=== PATIENT | female | born 1930 | race Two or more races ===

== ENCOUNTER 2017-06-20 14:01 | Outpatient (CLI) | payer MEDICARE, MEDICAID ==
--- NOTE | 2017-06-20 15:04 | GI Initial Consult Note ---
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 She presents today with c/o of generalized abdominal pain. Denies any unintentional weight loss or changes in dietary habits. No N/V/D. Patient is a fall risk. Home Meds Reported Medications [place]-3 Fatty Acids (Fish Oil) 500 Mg Capsule.dr, 500 MG PO, CAP 06/20/17 Glucosamine Sulfate 2KCL (GLUCOSAMINE) 1,000 Mg Tablet, 1000 MG PO, TAB 06/20/17 Vitamin D (Vitamin D3) 400 Unit Tablet, 400 UNITS ORAL DAILY, TAB 06/20/17 Zolpidem Tartrate* (ZOLPIDEM TARTRATE*) 5 Mg Tablet, 5 MG ORAL BEDTIME PRN, TAB 0 Refills 06/20/17 Aspirin* (ASPIR 81*) 81 Mg Tablet.dr, 81 MG ORAL DAILY, TAB 06/20/17 Ranitidine Hcl* (ZANTAC*) 150 Mg Tablet, 150 MG ORAL DAILY, #30 TAB 0 Refills 06/20/17 Escitalopram Oxalate* (LEXAPRO*) 10 Mg Tablet, 10 MG ORAL DAILY, TAB 06/20/17 Levothyroxine Sodium* (LEVOTHYROXINE SODIUM*) 75 Mcg Tablet, 25 MCG ORAL DAILY, TAB Take in the morning on an empty stomach, at least 30 minutes before food. 06/20/17 Diphenhydramine Hcl (BANOPHEN) 25 Mg Tablet, 25 MG PO, TAB 06/20/17 Lubiprostone (AMITIZA*) 24 Mcg Capsule, 24 MCG ORAL EVERY 12 HOURS, CAP 06/20/17 Omeprazole (OMEPRAZOLE) 40 Mg Capsule.dr, 40 MG ORAL DAILY, CAP 06/20/17 Atorvastatin (Lipitor) 80 Mg Tablet, 80 MG ORAL DAILY, TAB 0 Refills 06/20/17 Allergies: Coded Allergies: No Known Allergies (Verified , 01/28/11) Patient History Limited by: language barrier History Provided By: Patient PMH Narrative Osteopetrosis Chronic GERD Chronic Constipation Pancreatic Cyst Hypothyroidism Past Surgical History: N/A Social History: Denies: smoking, alcohol use, drug use, other Review of Systems All Other Systems: negative except mentioned in HPI Physical Exam T 97.6 BP 114/57 P 62 Sp02 EP Interpretation: reviewed, normal General Appearance: well appearing, no apparent distress, alert Head: normocephalic EENT: PERRL/EOMI, normal ENT inspection Neck: supple Respiratory: normal breath sounds, no respiratory distress Cardiovascular: normal rate Gastrointestinal: normal inspection, non tender, soft, normal bowel sounds, non -distended Rectal: deferred Genitourinary: no CVA tenderness Musculoskeletal: normal inspection, back normal Neurologic: normal inspection, alert, oriented x3, responsive Psychiatric: normal inspection, judgement/insight normal, memory normal Skin: normal inspection, normal color, no rash, warm/dry, palpation normal, well hydrated Lymphatic: normal inspection, no adenopathy GI: Plan Problems: (1) GERD (gastroesophageal reflux disease) (2) Constipation (3) Pancreatic cyst (4) Abdominal pain Plan CT AP ordered recommend Align Rx Amitiza 24mcg dc aspirin cont ppi labs today >> CBC, CMP, CEA, CA19-9, Amylase/lipase RTC after imaging studies Seen with Dr. Rapp. Thank you for this patient referral. Loly Matthews N.P. Jun 20, 2017 15:04
[2017-06-20] MEDS ORDERED: LEVOTHYROXINE75 MCG ORAL (15:49)
[2017-06-20] MEDS ORDERED: FISH OIL500 M3 PO (15:49)
[2017-06-20] MEDS ORDERED: LEXAPRO10 MG ORAL (15:49)
[2017-06-20] MEDS ORDERED: ZANTAC150 MG ORAL (15:49)
[2017-06-20] MEDS ORDERED: GLUCOSAMINE1000 M1 PO (15:49)
[2017-06-20] MEDS ORDERED: ZOLPIDEM TARTRAT5 MG ORAL (15:49)
[2017-06-20] MEDS ORDERED: LIPITOR80 MG ORAL (15:49)
[2017-06-20] MEDS ORDERED: ASPIR 8181 MG ORAL (15:49)
[2017-06-20] MEDS ORDERED: AMITIZA24 MCG ORAL (15:49)
[2017-06-20] MEDS ORDERED: OMEPRAZOLE40 M1 ORAL (15:49)
[2017-06-20] MEDS ORDERED: VITAMIN D400 INTLU ORAL (15:49)
[2017-06-20] MEDS ORDERED: BANOPHEN25 M1 PO (15:49)
[2017-06-20 17:20] LABS: BASOPHILS % (AUTO) 0.9 % (0.0-2.0); EOSINOPHILS % (AUTO) 3.5 % (0.0-3.0); HEMATOCRIT 37.3 % (37.0-47.0); HEMOGLOBIN 12.6 G/DL (12.0-16.0); LYMPHOCYTES % (AUTO) 30.2 % (20.0-45.0); MEAN CORPUSCULAR VOLUME 90 FL (80-99); MONOCYTES % (AUTO) 8.2 % (1.0-10.0); NEUTROPHILS % (AUTO) 57.2 % (45.0-75.0); PLATELET COUNT 246 K/UL (150-450); RED BLOOD COUNT 4.15 M/UL (4.20-5.40); RED CELL DISTRIBUTION WIDTH 12.2 % (11.6-14.8); WHITE BLOOD COUNT 8.5 K/UL (4.8-10.8)
[2017-06-20 17:30] LABS: ALANINE AMINOTRANSFERASE 21 U/L (12-78); ALBUMIN 3.6 G/DL (3.4-5.0); ALBUMIN/GLOBULIN RATIO 0.9 (1.0-2.7); ALKALINE PHOSPHATASE 59 U/L (46-116); AMYLASE 35 U/L (25-115); ANION GAP 8 mmol/L (5-15); ASPARTATE AMINO TRANSFERASE 20 U/L (15-37); BILIRUBIN,TOTAL 0.4 MG/DL (0.2-1.0); BLOOD UREA NITROGEN 18 mg/dL (7-18); CALCIUM 8.9 MG/DL (8.5-10.1); CARBON DIOXIDE 27 MMOL/L (21-32); CHLORIDE 103 MMOL/L (98-107); CREATININE 1.2 MG/DL (0.55-1.30); POTASSIUM 4.4 MMOL/L (3.5-5.1); SODIUM 138 MMOL/L (136-145)
[2017-06-21] MEDS ORDERED: AMITIZA8 MCG ORAL (12:01)
[2017-06-21] MEDS ORDERED: VITAMIN E400 UNI5 PO (12:01)
[2017-06-21] MEDS ORDERED: VITAMIN B COMP1 EAC2 ORAL (12:01)
== END 2017-06-20 14:35 | disposition home or self-care (01) ==
LOC: PAN 14:01
DX: K21.9 Gastro-esophageal reflux disease without esophagitis (principal); K59.00 Constipation, unspecified; K86.2 Cyst of pancreas; R10.9 Unspecified abdominal pain; Z91.81 History of falling; Z79.82 Long term (current) use of aspirin; E03.9 Hypothyroidism, unspecified; M81.0 Age-related osteoporosis without current pathological fracture
CPT/HCPCS: 36415; 80053; 82150; 82378; 83690; 85025

== ENCOUNTER 2017-07-04 10:21 | Day surgery (SDC) | payer MEDICARE, MEDICAID ==
[2017-07-04] VITALS (8 sets, daily range): BP systolic 112–153; BP diastolic 50–71
[~2017-07-04] VITALS: Ht 152.4 cm; Wt 54.0 kg
[~2017-07-04 10:21] MED LIST: AMITIZA24 MCG ORAL; AMITIZA8 MCG ORAL; ASPIR 8181 MG ORAL; BANOPHEN25 M1 PO; FISH OIL500 M3 PO; GLUCOSAMINE1000 M1 PO; LEVOTHYROXINE75 MCG ORAL; LEXAPRO10 MG ORAL; LIPITOR80 MG ORAL; OMEPRAZOLE40 M1 ORAL; VITAMIN B COMP1 EAC2 ORAL; VITAMIN D400 INTLU ORAL; VITAMIN E400 UNI5 PO; ZANTAC150 MG ORAL; ZOLPIDEM TARTRAT5 MG ORAL
--- NOTE | 2017-07-04 10:40 | Pre-Procedure Note/Attestation ---
Pre-Procedure Note/Attestation Complete Prior to Procedure Planned Procedure: not applicable Procedure Narrative: egd/eus Indications for Procedure Pre-Operative Diagnosis: panc cyst Attestation I attest that I discussed the nature of the procedure; its benefits; risks and complications; and alternatives (and the risks and benefits of such alternatives ), prior to the procedure, with the patient (or the patient's legal brand representative). I attest that, if there was a reasonable possibility of needing a blood transfusion, the patient (or the patient's legal brand representative) was given the [facility] standardized written summary, pursuant to the [place] Blood Safety Act ([place] Health and Safety Code # 1645, as amended). I attest that I re-evaluated the patient just prior to the surgery and that there has been no change in the patient's H&P, except as documented below: Mt Rapp MD July 04, 2017 10:40
--- NOTE | 2017-07-04 10:41 | Short Stay Surgery H&P ---
History of Present Illness History of Present Illness Chief Complaint panc cyst HPI Faizan Don is a 86 year old female who was admitted on for Pancreatic Cyst see recent office consult note Patient History Allergies: Coded Allergies: No Known Allergies (Verified , 01/28/11) Medication History Scheduled Aspirin* (Aspir 81*), 81 MG ORAL DAILY, (Reported) Atorvastatin (Lipitor), 10 MG ORAL DAILY, (Reported) Escitalopram Oxalate* (Lexapro*), 10 MG ORAL DAILY, (Reported) Levothyroxine Sodium* (Levothyroxine Sodium*), 25 MCG ORAL DAILY, (Reported) Lubiprostone (Amitiza), 8 MCG ORAL EVERY 12 HOURS, (Reported) Omeprazole (Omeprazole), 40 MG ORAL DAILY, (Reported) Ranitidine Hcl* (Zantac*), 150 MG ORAL DAILY, (Reported) Vitamin B Complex (Vitamin B Complex), 1 CAP ORAL DAILY, (Reported) Vitamin D (Vitamin D3), 400 UNITS ORAL DAILY, (Reported) Scheduled PRN Zolpidem Tartrate* (Zolpidem Tartrate*), 5 MG ORAL BEDTIME PRN, (Reported) Miscellaneous Medications Diphenhydramine Hcl (Banophen), 25 MG PO, (Reported) Glucosamine Sulfate 2KCL (Glucosamine), 1,000 MG PO, (Reported) [place]-3 Fatty Acids (Fish Oil), 500 MG PO, (Reported) Vitamin E Mixed (Vitamin E), Unknown Dose PO, (Reported) Plan Attestation Are the patient's medical conditions optimized for surgery? Mt Rapp MD July 04, 2017 10:41
[2017-07-04] MEDS ORDERED: Propofol 200mg/20ml IV ONE (11:30)
[2017-07-04] MEDS ORDERED: Midazolam 2mg/2ml Inj ONE (11:30)
[2017-07-04] MEDS ORDERED: LR 1000ml ONE (11:30)
--- NOTE | 2017-07-04 11:58 | Anethesia Preoperative Eval ---
Anesthesia Pre-op PMH/ROS General Date of Evaluation: July 04, 2017 Time of Evaluation: 11:24 Anesthesiologist: [place] ASA Score: ASA 2 Mallampati Score Class I : Soft palate, uvula, fauces, pillars visible Class II: Soft palate, uvula, fauces visible Class III: Soft palate, base of uvula visible Class IV: Only hard plate visible Mallampati Classification: Class II Surgeon: Dionte Diagnosis: Pancreatic cyst Surgical Procedure: EGD with EUS Anesthesia History: none Family History: no anesthesia problems Allergies: Coded Allergies: No Known Allergies (Verified , 01/28/11) Past Medical History Cardiovascular: Reports: HTN - mild; Denies: CAD, VT, valve dz, arrhythmia, other Pulmonary: Denies: asthma, COPD, PABLO, other Gastrointestinal/Genitourinary: Reports: GERD, other - recurrent abdominal pain ; Denies: CRI, ESRD Neurologic/Psychiatric: Reports: depression/anxiety; Denies: dementia, CVA, TIA, other Endocrine: Reports: hypothyroidism HEENT: Reports: cataract (L), cataract (R); Denies: glaucoma, [place] (L), [place] (R), other Hematology/Immune: Denies: anemia, DVT, bleeding disorder, other Musculoskeletal/Integumentary: Reports: DJD; Denies: OA, RA, DDD, edema, other PMH Narrative: as above PSxH Narrative: see H&P Anesthesia Pre-op Phys. Exam Physician Exam Last Vital Signs Date Time Temp Pulse Resp B/P (MAP) Pulse Ox O2 Delivery O2 Flow Rate FiO2 07/04/17 11:01 97.7 83 18 151/71 100 Room Air 97.7 Constitutional: NAD Neurologic: CN 2-12 intact Cardiovascular: RRR, no M/R/G Respiratory: CTA Gastrointestinal: S/NT/ND Airway Exam Mallampati Score: Class II MO: limited Neck: stiff ROM: limited Teeth: missing Dentures: no upper, no lower Anesthesia Pre-op A/P Labs see chart Risk Assessment & Plan Assessment: ASA 2 Plan: MAC Pre-Antibiotics Given Within 1 Hr of Incision: Mohan Young MD July 04, 2017 11:58
[2017-07-04] MEDS ORDERED: LR 1000ml 1,000 ML IVLG SCH (11:59)
[2017-07-04] MEDS ORDERED: fentaNYL 100 mcg/2 mL IV PRN (12:00)
[2017-07-04] MEDS ORDERED: Heplock Flush 100 units/ml 3 ml syr ONE (12:31)
[2017-07-04] MEDS ORDERED: Heplock Flush 100 units/ml 3 ml syr IV ONE (12:34)
--- NOTE | 2017-07-04 12:57 | Immediate Post-Op Evaluation ---
Immediate Post-Op Evalulation Immediate Post-Op Evalulation Procedure: EGD with EUS Date of Evaluation: July 04, 2017 Time of Evaluation: 12:55 IV Fluids: 700 Blood Products: none Estimated Blood Loss: none Urinary Output: none Blood Pressure Systolic: 120 Blood Pressure Diastolic: 52 Pulse Rate: 69 Respiratory Rate: 22 O2 Sat by Pulse Oximetry: 99 Temperature (Fahrenheit): 97.6 Pain Score (1-10): 1 Nausea: Yes Vomiting: Yes Complications none Patient Status: awake, patent, none Hydration Status: adequate Mohan Haynes MD July 04, 2017 12:57
--- NOTE | 2017-07-04 12:59 | 48 Hour Post Anesthesia Eval ---
Post Anesthesia Evaluation Procedure: EGD with EUS Date of Evaluation: July 04, 2017 Time of Evaluation: 13:40 Blood Pressure Systolic: 118 0: 72 Pulse Rate: 72 Respiratory Rate: 20 Temperature (Fahrenheit): 97.6 O2 Sat by Pulse Oximetry: 99 Airway: patent Nausea: No Vomiting: No Pain Intensity: 1 Hydration Status: adequate Cardiopulmonary Status: stable Mental Status/LOC: patient returned to baseline Follow-up Care/Observations: n/a Post-Anesthesia Complications: none Follow-up care needed: ready to discharge Mohan Haynes MD July 04, 2017 12:59
--- NOTE | 2017-07-04 14:00 | Endoscopy Procedure Note ---
Endoscopy Procedure Note General Indication for Procedure: panc cyst Procedures Performed: other - EUS Operative Findings/Diagnosis: same Specimen: none Pt Tolerated Procedure Well: Yes Estimated Blood Loss: none Anesthesia Anesthesiologist: rosie Anesthesia: MAC Inserted Devices Implant(s) used?: No GI Core Measures 50 yrs or older w/o bx or poly: Not Applicable 10yrs. F/U not recommended: Not Applicable Mt Rapp MD July 04, 2017 14:00
--- NOTE | 2017-07-04 19:45 | Procedure Note ---
DATE OF PROCEDURE: 07/04/2017 SURGEON: Mt Rapp M.D. PROCEDURE: Endoscopic ultrasound. INDICATION: Pancreatic cyst. ANESTHESIOLOGIST: Mohan Haynes M.D. INSTRUMENT: Olympus EUS scope, radial and linear. INDICATION: Pancreatic cyst. The procedure, risks, benefits, and possible consequences, including hemorrhage, aspiration, perforation and infection, and alternative treatments, were explained to the patient/legal guardian by Dr. Mt Rapp and the patient/legal guardian understood and accepted these risks. DESCRIPTION OF PROCEDURE: After informed consent was obtained and the patient was adequately sedated, EUS scope was advanced from mouth into the second portion of the duodenum and pancreatic parenchyma was carefully examined through the gastroduodenal mucosa. Starting scanning at GE junction, there was no obvious celiac axis lymphadenopathy at this time. Then, the scope was advanced slightly more to and her stomach, so we can see the pancreatic body and tail. There was no clear evidence of obvious pancreatitis. Pancreatic duct was mildly dilated in the body of the pancreas to about 4 mm in size. There was a complex cystic lesion at the junction of the tail and body roughly measured about 2.5 x 1.5 cm in size. This cyst most probably is complex, septated, but there is no obvious wall thickening or filling defect. We could not document communication with her main pancreatic duct. Differential diagnosis would be side branch IPMN versus mucinous cystic neoplasm. Of note, the cyst was seen in 2010 and had been FNA at that time, measured only 1 cm, now it has increased in size to about 2.5 over the last 7 years. At this time, the scope was advanced down into the duodenal bulb and second portion of the duodenum. Gallbladder was seen without any obvious stone in it. Head of the pancreas was examined. There was no dilated pancreatic duct in the head. No common bile duct dilation. At this time, the radial scope was removed and linear scope was introduced for possible FNA. We tried to use a 22-gauge needle to do the FNA, but every time we pushed the needle through, it was actually sliding not getting into the cyst. At this time, given the patient's age and given no obvious malignant signs including wall thickening or filling defect, we decided not to pursue further with the FNA. At this time, the scope was retrieved and the procedure was terminated. SUMMARY OF FINDINGS: A 2.5 x 1.5 complex cystic lesion in the body/tail of the pancreas. Minimal pancreatic duct dilatation of the body to about 4 mm. RECOMMENDATIONS: After having a long discussion with the family, family wants everything done. Family was concerned about the patient having pain and losing weight, so we are going to order an MRI with MRCP for further characterizing this cyst and the patient to follow in the office after the MRI finished. Mt Rapp M.D. DR: KETTY JOB#: [id number] CC:
--- NOTE | 2017-07-06 17:13 | Cardiology Report ---
APPROVED REPORT EKG Measurement Heart [id number] CT [id number] Normal sinus rhythm Normal ECG
== END 2017-07-04 13:40 | disposition home or self-care (01) ==
LOC: GAS 10:21
DX: K86.2 Cyst of pancreas (principal); I10 Essential (primary) hypertension; K21.9 Gastro-esophageal reflux disease without esophagitis; F32.9 Major depressive disorder, single episode, unspecified; F41.9 Anxiety disorder, unspecified; M19.90 Unspecified osteoarthritis, unspecified site; E03.9 Hypothyroidism, unspecified
CPT/HCPCS: 43242; 93005; J1642; J1956; J2250; J2704; J7120; 94003; 94150